=== PATIENT | male | born 1995 | race Caucasian/White ===

== ENCOUNTER → 2018-11-24 | Outpatient (REF) | payer SELFPAY ==
[2018-11-24 15:28] LABS: SEMEN APPEARANCE OPAQUE (OPAQUE); SEMEN VISCOSITY LIQUID (LIQUID); SEMEN VOLUME 3.8 ml (2.0-5.0); SPERM CONCENTRATION 63.5 M/ml (>=15.0); WBC CONCENTRATION <=1 M/ml (<=1 M/ml)
== END ==
LOC: EDBD → M LAB REF 14:58
PROVIDERS: ATTEND Obstetrics & Gynecology
DX: Z31.41 Encounter for fertility testing (principal)

== ENCOUNTER 2019-02-11 04:50 | Emergency (ER) | payer OTHER, SELFPAY ==
[~2019-02-11] VITALS: Ht 188 cm; Wt 97.7 kg
[2019-02-11] MEDS ORDERED: ONDANSETRON 4 MG ORAL DISINTEGRATING TAB (Q0162 PER 1MG) As Ordered ONE (05:09)
[2019-02-11] MEDS ORDERED: ONDANSETRON 4 MG ORAL DISINTEGRATING TAB (Q0162 PER 1MG) PO ONE (05:15)
[2019-02-11 06:05] VITALS: BP 122/79
== END 2019-02-11 06:30 | disposition home or self-care (01) ==
LOC: M ED 04:50
DX: F10.120 Alcohol abuse with intoxication, uncomplicated (principal)
CPT/HCPCS: 99284; Q0162